=== PATIENT | female | born 1965 | race African-American/Black ===

== ENCOUNTER 2021-11-16 17:57 | Emergency (ER) | payer BC, OTHER ==
[2021-11-16 19:32] LABS: HEMOGLOBIN 12.9 gm/dl (12.3-15.3); RED BLOOD COUNT 4.25 M/UL (4.00-5.10)
[2021-11-16 19:59] LABS: BUN/CREATININE RATIO 17 (0-10)
== END 2021-11-16 22:15 | disposition home or self-care (01) ==
LOC: ER1 17:57
PROVIDERS: Student in an Organized Health Care Education/Training Program
DX: R07.89 Other chest pain (principal); I10 Essential (primary) hypertension; Z90.710 Acquired absence of both cervix and uterus
CPT/HCPCS: 71045; 80053; 82550; 82553; 84484; 85025; 85379; 93005; 99285